=== PATIENT | male | born 2000 | race Two or more races ===

== ENCOUNTER 2024-12-19 21:44 | Emergency (ER) | payer BC, SELFPAY ==
[2024-12-19 21:47] VITALS: BMI 28.8
[2024-12-19 22:47] VITALS: BP 148/85; PULSE 72; RESP 18; TEMP 36.8; O2SAT 96
--- NOTE | 2024-12-19 22:54 | XR_ITS ---
Examination: Right elbow 3 views Technique: Elbow AP, oblique, lateral 3 views Exam date and time: December 19, 2024 11:00 PM INDICATIONS: Patient fell today with images available, elbow pain. FINDINGS: No acute fracture No dislocation No foreign body IMPRESSION: No acute fracture.
--- NOTE | 2024-12-19 22:54 | XR_ITS ---
Examination: Forearm, right, 2 views. Technique: Forearm, AP, lateral 2 views Date and time of exam: December 19, 2024 2301 hours INDICATIONS: Patient fell the day with injury to the forearm, forearm pain IMPRESSION: No forearm fractures or dislocation No foreign body IMPRESSION: No acute fracture
--- NOTE | 2024-12-19 23:00 | PD.EDFALL ---
ED Fall Injury RME/HPI General Chief Complaint: Extremity Injury, Upper Stated Complaint: RIGHT ELBOW INJURY S/P FALL Time Seen by Provider: 12/19/24 22:09 Arrival date/time: 12/19/24 21:44 Limitations: no limitations RME / HPI RME / HPI Narrative: 24-year-old male with no reported past medical history presents for evaluation of right elbow pain x 2 hours. Patient reports that he slipped and fell while carrying a bag on his right arm and landed directly on his elbow. Patient denies head injury, LOC, additional injuries. Patient reports swelling and tingling to his right forearm. Patient notes history of surgery on his right forearm following a fracture several years ago and reports that he has indwelling pins. Patient is not taking pain meds prior to arrival to the ED. Onset (ago): hour(s) Fall from: standing Place fall occurred: home Loss of consciousness: none Prolonged down time: no Context: tripped/slipped Related Data Allergies Allergy/AdvReac Type Severity Reaction Status Date / Time No Known Allergies Allergy Verified 12/19/24 21:47 Review of Systems Constitutional Constitutional: Denies fatigue, Denies fever(s), Denies headache(s) and Denies weakness Eyes Eyes: Denies blurry vision and Denies change in vision ENT Ears, Nose, Mouth, and Throat: Denies dizziness, Denies headache(s) and Denies neck pain Cardiovascular Cardiovascular: Denies chest pain, Denies dyspnea and Denies leg edema Respiratory Respiratory: Denies cough, Denies dyspnea and Denies wheezing Gastrointestinal Gastrointestinal: Denies abdominal pain, Denies nausea and Denies vomiting Musculoskeletal Musculoskeletal: Reports arthralgias (right elbow. ), Denies back pain, Denies deformity, Denies joint swelling, Reports limited range of motion (right elbow. ), Denies neck pain, Denies numbness, Denies radiating pain into limb, Denies stiffness and Denies tingling Integumentary/Breasts Skin/Breast: Denies rash and Denies wounds Neurologic Neurologic: Denies dizziness, Denies headache(s), Denies numbness, Denies tingling and Denies weakness Endocrine Endocrine: Denies fatigue Allergic/Immunologic Allergic/Immunologic: Denies wheezing Past Medical History Social History SMOKING STATUS: Never smoker ED Exam General Limitations: Present no limitations General appearance: Present alert and in no apparent distress Head Head exam: Present atraumatic and normocephalic Eye Eye exam: Present normal appearance, PERRL and EOMI ENT ENT exam: Present normal exam, mucous membranes moist and TM's normal bilaterally Expanded ENT Exam External ear exam: Absent auricular hematoma Neck Neck exam: Present normal inspection and full ROM; Absent tenderness Chest Chest inspection: Present normal inspection and symmetric chest wall rise Respiratory Respiratory exam: Present normal lung sounds bilaterally; Absent respiratory distress or wheezes Cardiovascular Cardiovascular exam: Present regular rate and +S1 Abdominal Exam Abdominal exam: Present soft; Absent distention Expanded Upper Extremity Exam Shoulder exam: Present normal inspection Arm exam: Present normal inspection Elbow exam: Present tenderness (mild tenderness to palpation and ROM of right elbow. ); Absent swelling, ecchymosis, deformity or crepitus Forearm/Wrist exam: Present normal inspection and full ROM; Absent tenderness or tenderness over anatomical snuff box Hand exam: Present normal inspection; Absent full ROM Neurosensory exam: Normal radial nerve Vascular exam: Normal capillary refill Back Exam Back exam: Present normal inspection and full ROM Neurological Exam Neurological exam: Present alert and normal gait Psychiatric Psychiatric exam: Present normal affect Skin Skin exam: Present warm and dry Course Quality Measures none Orders Category Date Time Status XR elbow comp RT min 3V Stat Exams 12/19/24 22:54 Completed XR forearm RT 2V Stat Exams 12/19/24 22:54 Completed Acetaminophen Tab [Tylenol Tab] Med 12/19/24 22:54 Discontinued 325 mg PO X1 ONE Ibuprofen Tab [Motrin Tab] Med 12/19/24 22:54 Discontinued 600 mg PO X1 ONE Vital Signs Vital signs: Vital Signs Temperature 98.3 F 12/19/24 22:47 Pulse Rate 72 12/19/24 22:47 Respiratory Rate 18 12/19/24 22:47 Blood Pressure 148/85 H 12/19/24 22:47 Pulse Oximetry (%) 96 12/19/24 22:47 Oxygen Delivery Method Room Air 12/19/24 22:47 Pulse ox 96% on room air, within normal limits. Fall MDM Narrative MDM Narrative:: Very pleasant 24-year-old male with no reported past medical history presents for evaluation of right elbow pain following a slip and fall. Denies head trauma and LOC. Vital signs reassuring. Unremarkable physical exam. X-rays today showed no acute fracture or dislocation of right elbow. Patient's pain improved following analgesics in department. More likely contusion for which we advised patient to rest, ice and take Tylenol or Motrin as needed every 6 hours for pain. I advised patient to follow-up with primary care within the week for reevaluation and to contact outpatient Ortho for follow-up if his symptoms do not improve within the next week. Patient stable at time of discharge. Patient data External records reviewed:: [facility] previous records Clinical information provided by:: patient Social determinants that could affect healthcare access:: none Patient has the following chronic illnesses:: None reported. How is presenting disease/condition affected by chronic disease/condition?: no chronic disease Evaluation data The following diagnostics were reviewed and interpreted by me:: radiology exam(s) Lab and/or radiology exams considered but not ordered:: Considered not ordered. Interpretation Summary: Right elbow and forearm x-ray without fracture and dislocation. Medications / Prescriptions Medications or Prescriptions considered but not ordered:: Rx given. Medication administrations:: Medication Administration History Discontinued Medications Acetaminophen (Acetaminophen 325 Mg Tablet) 325 mg PO X1 ONE Stop: 12/19/24 22:55 Last Admin: 12/19/24 23:19 Dose: 325 mg Documented By: CRISTINA Ibuprofen (Ibuprofen Tab 600 Mg Tablet) 600 mg PO X1 ONE Stop: 12/19/24 22:55 Last Admin: 12/19/24 23:19 Dose: 600 mg Documented By: CRISTINA Rx given. Consultations Consultation(s) initiated? (list below): No Diagnosis Fall Differential Diagnosis: dislocation of shoulder region, fracture of wrist, compression fracture and other (Right elbow dislocation, right forearm fracture.) Most likely diagnosis given after review of the tests above:: Right elbow contusion. Admission Indicated Admission indicated?: not indicated Admission Request Was there a request for admission?: No Disposition Plan Disposition Plan: Discharge Discharge Attestation Discharge Attestation: The patient and all family members were given an opportunity to ask questions and understood the discharge instructions. Discharge instructions specifically effects, indications for sooner follow up or return to the emergency department, and the expected course of current diagnosis. Patient condition: Stable Discharge Plan Plan Patient Disposition: HOME (Self Care) Disposition Comment: stable Prescriptions/Referrals Referrals: Reanna Hinson PA-C [Primary Care Provider] - In 1 week Problem List Clinical Impression: Contusion of elbow, Elbow pain Impression comment: Take Tylenol or ibuprofen every 6 hours as needed for elbow pain. Rest, ice for up to 15 minutes at a time, and use compression dressing for the next several days. Follow-up with primary care within the next 2 to 3 days for reevaluation. Return to the ED if your symptoms worsen or change. Patient/Caregiver Discharge Instructions Education Materials: ED JASON Wrap, ED Contusion, Elbow, ED RICE Print Language: Pashto Stand Alone Forms: [place] Award Info., Patient Portal Info Letter PA/WATERPROOFING MIXER Supervising Physician PA/WATERPROOFING MIXER Supervising Physician: Dr. Sanchez
[2024-12-19] MEDS: IBUPROFEN TAB 600 MG TABLET PO (23:19)
[2024-12-19] MEDS: ACETAMINOPHEN 325 MG TABLET PO (23:19)
== END 2024-12-20 00:06 | disposition home or self-care (01) ==
PROVIDERS: Emergency Provider Emergency Medicine; PCP Student in an Organized Health Care Education/Training Program
DX: S50.01XA Contusion of right elbow, initial encounter (principal); S59.911A Unspecified injury of right forearm, initial encounter; W01.0XXA Fall on same level from slipping, tripping and stumbling without subsequent striking against object, initial encounter
CPT/HCPCS: 73080; 73090; 99283; A9270